=== PATIENT | female | born 1960 | race Caucasian/White ===

== ENCOUNTER 2018-01-13 00:09 | Emergency (ER) | payer OTHER ==
[2018-01-13 00:23] VITALS: BP 99/78; PULSE 62; TEMP 97.4; BMI 29.9
--- NOTE | 2018-01-13 00:52 | PDOC ---
History of Present Illness - General History Source: Patient Exam Limitations: No Limitations - History of Present Illness Initial Comments: 01/13/18 06:15 Pmhx: Hypothyroid, hyperlipidemia, reflux, renal colic, GERD Pshx: Lithotripsy, carpal tunnel, tonsillectomy Allergies: Prednisone/rash FH:0 Social Hx: Cigarettes/0 Alcohol/ 0 Drugs/0 LMP:N/A 57-year-old female presents to the emergency department with her and sister complaining of epigastric pain. Pain is described as 8/10 burning intermittent discomfort radiating superiorly and to the right upper quadrant. Patient states she's experienced the pain since 1900 hrs. last evening and is associated with nausea and vomiting but denies fever, chills, headache, dizziness, lightheadedness, facial pains, neck/back pains, chest pain, shortness of breath, flank pains, urinary symptoms. Patient states pain is exacerbated intermittently when touching and alleviated at rest. Patient had endoscopy 6 months ago and was informed she had politics and GERD. Patient states she had dinner at approximately 1700 hrs. but felt nauseous shortly after. Other family members at the same food but felt fine. <Mi Nogueira - Last Filed: 01/13/18 06:19> <Zhanna Cannon - Last Filed: 01/13/18 17:21> - General Chief Complaint: Pain Stated Complaint: STOMACH PAIN Time Seen by Provider: 01/13/18 00:50 Past History - Past Medical History COPD: No - Suicide/Smoking/Psychosocial Hx Smoking History: Never smoked <Mi Nogueira - Last Filed: 01/13/18 06:19> <Zhanna Cannon - Last Filed: 01/13/18 17:21> - Past Medical History Allergies/Adverse Reactions: Allergies Allergy/AdvReac Type Severity Reaction Status Date / Time prednisone Allergy Verified 01/13/18 00:23 Home Medications: Ambulatory Orders Escitalopram Oxalate [Lexapro -] 10 mg PO DAILY 01/13/18 Levothyroxine [Synthroid -] 50 mcg PO DAILY 01/13/18 Review of Systems - Review of Systems Able to Perform ROS?: Yes Comments:: 01/13/18 06:20 CONSTITUTIONAL: Absent: fever, chills, diaphoresis, generalized weakness, malaise, loss of appetite HEENT: Absent: rhinorrhea, nasal congestion, throat pain, throat swelling, difficulty swallowing, mouth swelling, ear pain, eye pain, visual Changes CARDIOVASCULAR: Absent: chest pain, loss of consciousness, palpitations, irregular heart rate, peripheral edema RESPIRATORY: Absent: cough, shortness of breath, dyspnea with exertion, orthopnea, wheezing, stridor, hemoptysis GASTROINTESTINAL: +epigastric abd pain with nausea Absent: abdominal distension, vomiting, diarrhea, constipation, melena, hematochezia GENITOURINARY: Absent: dysuria, frequency, urgency, hesitancy, hematuria, flank pain, genital pain MUSCULOSKELETAL: Absent: myalgia, arthralgia, joint swelling SKIN: Absent: rash, itching, pallor HEMATOLOGIC/IMMUNOLOGIC: Absent: easy bleeding, easy bruising, lymphadenopathy, frequent infections ENDOCRINE: Absent: unexplained weight gain, unexplained weight loss, heat intolerance, cold intolerance NEUROLOGIC: Absent: headache, focal weakness or paresthesias, dizziness, unsteady gait, seizure, mental status changes, bladder or bowel incontinence PSYCHIATRIC: Absent: anxiety, depression, suicidal or homicidal ideation, hallucinations. GENERAL: Well developed, well nourished. Awake and alert. No acute distress. HEENT: Normocephalic, atraumatic. PERRLA, EOMI. No conjunctival pallor. Sclera are non- icteric. Moist mucous membranes. Oropharynx is clear. NECK: Supple. Full ROM. No JVD. Carotid pulses 2+ and symmetric, without bruits. No thyromegaly. No lymphadenopathy. CARDIOVASCULAR: Regular rate and rhythm. No murmurs, rubs, or gallops. Distal pulses are 2+ and symmetric. PULMONARY: No evidence of respiratory distress. Lungs clear to auscultation bilaterally. No wheezing, rales or rhonchi. ABDOMINAL: Soft. epigastric pain/mild RUQ pain on deep palp . Non-distended. No rebound or guarding. No organomegaly. Normoactive bowel sounds. MUSCULOSKELETAL Normal range of motion at all joints. No bony deformities or tenderness. No CVA tenderness. EXTREMITIES: No cyanosis. No clubbing. No edema. No calf tenderness. SKIN: Warm and dry. Normal capillary refill. No rashes. No jaundice. NEUROLOGICAL: Alert, awake, appropriate. Cranial nerves 2-12 intact. No deficits to light touch and temperature in face, upper extremities and lower extremities. No motor deficits in the in face, upper extremities and lower extremities. Normoreflexic in the upper and lower extremities. Normal speech. Toes are down- going bilaterally. Gait is normal without ataxia. PSYCHIATRIC: Cooperative. Good eye contact. Appropriate mood and affect. Is the patient limited [place] proficient: No <Mi Nogueira - Last Filed: 01/13/18 06:19> *Physical Exam - Vital Signs Last Vital Signs Temp Pulse Resp BP Pulse Ox 97.4 F L 62 18 99/78 100 01/13/18 00:20 01/13/18 00:20 01/13/18 00:20 01/13/18 00:20 01/13/18 00:20 <Mi Nogueira - Last Filed: 01/13/18 06:19> - Vital Signs Last Vital Signs Temp Pulse Resp BP Pulse Ox 97.4 F L 62 18 99/78 100 01/13/18 00:20 01/13/18 00:20 01/13/18 00:20 01/13/18 00:20 01/13/18 00:20 <Zhanna Cannon - Last Filed: 01/13/18 17:21> ED Treatment Course - LABORATORY CBC & Chemistry Diagram: 01/13/18 05:54 01/13/18 00:57 - RADIOLOGY Radiograph Interpretation: 01/13/18 03:30 US abd limited; WNL CT abd /pelvis with po/iv contrast: no acute findings <Mi Nogueira - Last Filed: 01/13/18 06:19> - LABORATORY CBC & Chemistry Diagram: 01/13/18 05:54 01/13/18 00:57 - ADDITIONAL ORDERS Additional order review: Laboratory Results 01/13/18 04:30 Lactic Acid 1.6 01/13/18 01/13/18 05:54 00:57 RBC 4.94 5.37 H MCV 82.6 82.1 MCHC 33.1 32.5 RDW 13.9 14.0 MPV 9.8 9.6 Neutrophils % 83.8 H 81.1 Lymphocytes % 9.0 9.8 Monocytes % 6.6 8.2 Eosinophils % 0.4 0.7 Basophils % 0.2 0.2 - Medications Given in the ED: ED Medications Discontinued Medications Generic Name Dose Route Start Last Admin Trade Name Freq PRN Reason Stop Dose Admin Al Hydroxide/Mg Hydroxide 30 ml 01/13/18 03:07 01/13/18 03:20 Mylanta Oral Suspension - PO 01/13/18 03:08 30 ml ONCE ONE Administration Sodium Chloride 1,000 mls @ 1,000 mls/hr 01/13/18 00:53 01/13/18 01:12 Normal Saline - IV 01/13/18 01:52 1,000 mls/hr ASDIR STA Administration Famotidine/Sodium Chloride 20 mg in 50 mls @ 100 mls/hr 01/13/18 03:07 03:20 Pepcid 20 Mg Premixed Ivpb - IVPB 01/13/18 03:36 100 mls/hr ONCE ONE Administration Ranitidine HCl 300 mg 01/13/18 03:08 01/13/18 03:20 Zantac - PO 01/13/18 03:09 300 mg ONCE ONE Administration <Zhanna Cannon - Last Filed: 01/13/18 17:21> Medical Decision Making - Medical Decision Making 01/13/18 06:21 57-year-old female presents to the ER complaining of epigastric pain with a burning sensation to the chest and a sour taste in her mouth. The pain intermittently radiates to the right upper quadrant. Ultrasound limited/abdomen to rule out any gallbladder disease and look at the common bile duct which were all normal. CAT scan of the abdomen and pelvis was ordered. CAT scan shows within normal limits. Patient had a white count of 20,000. Patient denies being on prednisone and in fact is ALLERGIC to prednisone. After Pepcid, Maalox and Zantac, normal saline IV bolus, WBC came down to 13 and patient is pain-free. Patient has been advised to follow with bioinformatics assistant. Patient states she feels better and wishes to be discharged. <Mi Nogueira - Last Filed: 01/13/18 06:19> *DC/Admit/Observation/Transfer - Discharge Dispostion Decision to Admit order: No <Mi Nogueira - Last Filed: 01/13/18 06:19> - Attestations Physician Attestion: I reviewed the case with the mid-level practitioner and agree with the mid- level practitioner's assessment, diagnosis and disposition. <Zhanna Cannon - Last Filed: 01/13/18 17:21> Diagnosis at time of Disposition: Gastritis Qualifiers: Gastritis type: unspecified gastritis Chronicity: unspecified Gastritis bleeding: without bleeding Qualified Code(s): K29.70 - Gastritis, unspecified, without bleeding Abdominal pain Qualifiers: Abdominal location: right lower quadrant Qualified Code(s): R10.31 - Right lower quadrant pain - Discharge Dispostion Disposition: HOME Condition at time of disposition: Stable - Referrals Referrals: Edward Rolon [Primary Care Provider] - Emily Sosa DO [Staff Physician] - - Patient Instructions Printed Discharge Instructions: DI for Abdominal Pain-Adult Additional Instructions: Increase fluids Follow with the bioinformatics assistant this week Return back to the ER for severe/persistent or worsening symptoms - Post Discharge Activity
[2018-01-13] MEDS ORDERED: SODIUM CHLORIDE 1,000 ML IV STA (00:53)
[2018-01-13] MEDS ORDERED: ONDANSETRON 4 MG/2 ML VIAL ONE (00:53)
[2018-01-13 01:13] LABS: BASO % 0.2 % (0-2.0); EOS % 0.7 % (0-4.5); HEMATOCRIT 44.1 % (32.4-45.2); HEMOGLOBIN 14.3 GM/dL (10.7-15.3); LYMPH % 9.8 % (8-40); MCH 26.7 pg (25.7-33.7); MCHC 32.5 g/dl (32.0-36.0); MEAN CELL VOLUME 82.1 fl (80-96); MEAN PLT VOLUME 9.6 fl (7.5-11.1); MONO % 8.2 % (3.8-10.2); NEUT % 81.1 % (42.8-82.8); PLATELET COUNT 285 K/MM3 (134-434); RBC 5.37 M/mm3 (3.60-5.2)
[2018-01-13 01:47] LABS: ALBUMIN 3.6 g/dl (3.4-5.0); ALK PHOS 142 U/L (45-117); ANION GAP 7 MMOL/L (8-16); BILIRUBIN,TOTAL 0.2 mg/dL (0.2-1); BLOOD UREA NITROGEN 17 mg/dL (7-18); CALCIUM 8.6 mg/dL (8.5-10.1); CHLORIDE 105 mmol/L (98-107); CO2 30 mmol/L (21-32); CREATININE 0.8 mg/dL (0.55-1.3); GLUCOSE,RANDOM 107 mg/dL (74-106); LIPASE 148 U/L (73-393); POTASSIUM 4.2 mmol/L (3.5-5.1); SGOT/AST 26 U/L (15-37); SGPT/ALT 22 U/L (13-61); SODIUM 142 mmol/L (136-145); TOT PROT 7.1 g/dl (6.4-8.2)
[2018-01-13 02:43] LABS: URINE APPEARANCE SLCLOUDY; URINE BILIRUBIN NEGATIVE (<2.0 mg/dL); URINE COLOR LTYELLOW; URINE GLUCOSE (UA) NEGATIVE (NEGATIVE); URINE KETONE NEGATIVE (NEGATIVE); URINE LEUK ESTERASE NEGATIVE (NEGATIVE); URINE NITRITE NEGATIVE (NEGATIVE); URINE PROTEIN NEGATIVE (NEGATIVE); URINE UROBILINOGEN NEGATIVE mg/dL (0.2-1.0)
[2018-01-13] MEDS ORDERED: MAG HYDROX/AL HYDROX/SIMETH 30 ML UNIT-DOSE CUP PO ONE (03:07)
[2018-01-13] MEDS ORDERED: FAMOTIDINE 20 MG/50 ML IVPB 20 MG/50 ML MG IVPB ONE ×2 (03:07→03:10)
[2018-01-13] MEDS ORDERED: RANITIDINE HCL 150 MG TABLET (FP) PO ONE (03:08)
[2018-01-13] MEDS ORDERED: MAG HYDROX/AL HYDROX/SIMETH 30 ML UNIT-DOSE CUP ONE (03:10)
[2018-01-13] MEDS ORDERED: RANITIDINE HCL 150 MG TABLET (FP) ONE (03:16)
[2018-01-13 03:40] LABS: ACANTHOCYTES 0; ANISOCYTOSIS 0; HELMET CELLS 0; HOWELL-JOLLY BODIES 0; MACROCYTOSIS 0; OVALOCYTE 0; PLATELET ESTIMATE NORMAL; ROULEAU 0; SICKELED CELLS 0; TARGET CELLS 0; TEAR DROP CELLS 0; TOXIC GRANULATION 0
[2018-01-13 06:11] LABS: BASO % 0.2 % (0-2.0); EOS % 0.4 % (0-4.5); HEMATOCRIT 40.8 % (32.4-45.2); HEMOGLOBIN 13.5 GM/dL (10.7-15.3); MCH 27.4 pg (25.7-33.7); MCHC 33.1 g/dl (32.0-36.0); MEAN CELL VOLUME 82.6 fl (80-96); MEAN PLT VOLUME 9.8 fl (7.5-11.1); MONO % 6.6 % (3.8-10.2); NEUT % 83.8 % (42.8-82.8); PLATELET COUNT 234 K/MM3 (134-434); RBC 4.94 M/mm3 (3.60-5.2); RDW 13.9 % (11.6-15.6); WHITE BLOOD COUNT 13.3 K/mm3 (4.0-10.0)
--- NOTE | 2018-01-13 12:37 | PDOC ---
Patient Follow-up (Call Back) - Post ED Follow - Up Chief Complaint: Pain Condition at time of discharge: Stable Disposition at time of original discharge: HOME - Disposition Additional Instructions/Notes: Radiology MD Flores called to report that patient has incidental finding of polyp and needs to be followed by GI. Patient already has GI referral and f/u instructions per ARACELI Nogueira from discharge, no need for further f/u.
--- NOTE | 2018-01-14 10:33 | EKG ---
Test Reason : Blood Pressure : / mmHG Vent. Rate : 087 BPM Atrial Rate : 087 BPM P-R Int : 130 ms QRS Dur : 086 ms QT Int : 348 ms P-R-T Axes : 059 022 015 degrees QTc Int : 418 ms NORMAL SINUS RHYTHM NORMAL ECG WHEN COMPARED WITH ECG OF 28-MAY-2009 23:24, NO SIGNIFICANT CHANGE WAS FOUND Confirmed by JOSE MIGUEL CLANCY MD ([id number]) on 01/14/2018 10:33:00 AM Referred By: Confirmed By:JOSE MIGUEL CLANCY MD
== END 2018-01-13 06:54 | disposition home or self-care (01) ==
LOC: JER 00:09
PROC: 3E0337Z Introduction of Electrolytic and Water Balance Substance into Peripheral Vein, Percutaneous Approach (ICD-10-PCS; principal; 2018-01-13)
PROC: 3E033GC Introduction of Other Therapeutic Substance into Peripheral Vein, Percutaneous Approach (ICD-10-PCS; 2018-01-13)
DX: K29.70 Gastritis, unspecified, without bleeding (principal)
CPT/HCPCS: 36415; 74177-TC; 76705-TC; 80053; 81003; 82550; 83605; 83690; 84484; 85025; 93005; 93010; 99283-25; J7030